=== PATIENT | male | born 1965 | race Caucasian/White ===

== ENCOUNTER 2017-01-11 19:23 | Emergency (ER) | payer SELFPAY ==
[2017-01-11] MEDS ORDERED: TDAP ADULT 0.5 ML INJ (BOOSTRIX) IM ONE (19:56)
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
[2017-01-11 21:26] VITALS: BP 104/69; PULSE 98; RESP 16; O2SAT 92
== END 2017-01-11 21:33 ==
PROC: 0HQDXZZ Repair Right Lower Arm Skin, External Approach (ICD-10-PCS; principal; 2017-01-11)
DX: S61.511A Laceration without foreign body of right wrist, initial encounter (principal); S00.81XA Abrasion of other part of head, initial encounter; S80.812A Abrasion, left lower leg, initial encounter; S80.811A Abrasion, right lower leg, initial encounter; F17.200 Nicotine dependence, unspecified, uncomplicated; Z23 Encounter for immunization; Y09 Assault by unspecified means; Y92.149 Unspecified place in prison as the place of occurrence of the external cause

== ENCOUNTER 2018-03-30 00:57 | Emergency (ER) | payer MEDICAID, OTHER ==
[2018-03-30 01:21] LABS: PLATELET COUNT 195 10^3/uL (150-400)
[2018-03-30 01:29] LABS: INR 1.05 (0.83-1.16); PROTIME(PATIENT) 13.9 SEC (12.0-15.0)
--- NOTE | 2018-03-30 01:38 | EDPHY ---
H & P Stated Complaint: med clear-coumadin levels off-vision problems- Time Seen by Provider: 03/30/18 01:01 HPI/ROS: HPI The patient presents with about 5 days of eye redness without any pain or changes to his vision. He had a headache yesterday which is now improved. He is on Coumadin for DVT and has had supratherapeutic INRs lately as high as 5. He has been off of his Coumadin for the last several days.. REVIEW OF SYSTEMS 10 systems were reviewed and negative with the exception of the elements mentioned in the history of present illness. 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 Soc Hx: Currently incarcerated on a DUI PHYSICAL General Appearance: Alert, no distress Eyes: Conjunctiva are injected bilaterally ENT, Mouth: Mucous membranes moist Respiratory: There are no retractions, lungs are clear to auscultation Cardiovascular: Regular rate and rhythm Gastrointestinal: Abdomen is soft and non-tender, no masses, bowel sounds normal Neurological: A&O, moves all extremities Skin: Warm and dry, no rashes Musculoskeletal: Neck is supple non tender Extremities: symmetrical, full range of motion Psychiatric: Patient is oriented X 3, there is no agitation Source: Patient Exam Limitations: No limitations - Personal History Current Tetanus Diphtheria and Acellular Pertussis (TDAP): Yes - Medical/Surgical History Hx Asthma: No Hx Chronic Respiratory Disease: No Hx Diabetes: No Hx Cardiac Disease: No Hx Renal Disease: No Hx Cirrhosis: Yes Hx Alcoholism: Yes Hx HIV/AIDS: No Hx Splenectomy or Spleen Trauma: No Other PMH: STAGE 4 LIVER ISSUES, DVT, Hep C, - Social History Smoking Status: Heavy smoker Constitutional: Initial Vital Signs Temperature (C) 36.6 C 03/30/18 00:59 Heart Rate 69 03/30/18 00:59 Respiratory Rate 16 03/30/18 00:59 Blood Pressure 167/105 H 03/30/18 00:59 O2 Sat (%) 94 03/30/18 00:59 O2 Delivery Mode Room Air Allergies/Adverse Reactions: No Known Allergies Allergy (Unverified 03/30/18 00:58) Home Medications: Medication Instructions Recorded Aspirin 81 mg PO DAILY 01/11/17 Coumadin 03/30/18 Lipitor 03/30/18 Olopatadine 0.1% [Patanol 0.1% 2 drops EACHEYE BID #1 bottle 03/30/18 Opht Drop (RX)] Wellbutrin Sr 03/30/18 Medical Decision Making Differential Diagnosis: This is a 53-year-old man from [facility] with history of DVT on Coumadin who presents with eye redness and intermittent headache. He had supratherapeutic INRs recently and his Coumadin is being held. Here his INR is normal and he is subtherapeutic unfortunately. I have advised that he restart his Coumadin at 5 mg daily. I have considered intracranial hemorrhage, however the patient currently does not have any headache and with a normal INR, I feel this is unlikely. His eye redness could be related to coagulopathy, however more likely allergic conjunctivitis. There is no subconjunctival hemorrhage. I will prescribe him fraser at all. We have contacted the long term and they will accept him back there. - Data Points Laboratory Results: Laboratory Results 03/30/18 00:14 Departure - Departure Disposition: Law Enforcement/Court/Correction Clinical Impression: Subtherapeutic international normalized ratio (INR), Allergic conjunctivitis Condition: Good Instructions: Warfarin (By mouth), Conjunctivitis (ED) Additional Instructions: The INR level today was sub therapeutic. I would recommend that you take Coumadin 5 mg once daily for the next 3 days and recheck your INR after that. You could be suffering from some eye allergies and I am going to give you medication for this. You can also try cool compresses on her eyes to see if this helps her symptoms. Referrals: NONE *PRIMARY CARE P,. [Primary Care Provider] - As per Instructions Prescriptions: Olopatadine 0.1% [Patanol 0.1% Opht Drop (RX)] 2 drops EACHEYE BID #1 bottle
[2018-03-30 01:46] VITALS: BP 142/108
== END 2018-03-30 01:45 ==
DX: H10.9 Unspecified conjunctivitis (principal); I82.4Y9 Acute embolism and thrombosis of unspecified deep veins of unspecified proximal lower extremity; Z79.01 Long term (current) use of anticoagulants; F17.200 Nicotine dependence, unspecified, uncomplicated